=== PATIENT | female | born 1975 | race Caucasian/White ===

== ENCOUNTER 2017-03-17 09:34 | Emergency (ER) | payer MEDICAID ==
[2017-03-17] MEDS ORDERED: KETOROLAC 60 MG INJ IM (10:24)
[2017-03-17 11:05] LABS: ADD MAN DIFF? NO
[2017-03-17 11:25] LABS: BASOPHILS % 0.3 % (0.0-2.0); EOSINOPHILS # 0.2 10^3/ul (0.0-0.5); EOSINOPHILS % 1.7 % (0.0-7.0); HEMATOCRIT 32.7 % (37.0-47.0); LYMPHOCYTES # 1.4 10^3/ul (0.8-2.9); MEAN CORPUSCULAR HEMOGLOBIN 27.9 pg (29.0-33.0); MEAN CORPUSCULAR HGB CONC 33.6 g/dl (32.0-37.0); MEAN PLATELET VOLUME 10.7 fl (7.4-10.4); MONOCYTE # 0.7 10^3/ul (0.3-0.9); MONOCYTES % 6.4 % (0.0-11.0); NEUTROPHIL # 8.5 10^3/ul (1.6-7.5); NEUTROPHILS % 78.1 % (39.0-77.0); PLATELET COUNT 260 10^3/UL (140-415); RED BLOOD COUNT 3.94 10^6/ul (4.20-5.40); RED CELL DISTRIBUTION WIDTH 14.5 % (11.5-14.5)
[2017-03-17 11:25] LABS: WHITE BLOOD COUNT 10.9 10^3/ul (4.8-10.8)
[2017-03-17] MEDS: ONDANSETRON 4 MG INJ IV (11:27)
[2017-03-17] MEDS: morphine 4 MG/ML VIAL IV (11:27)
[2017-03-17 11:28] LABS: ANION GAP 14 (8-16); BLOOD UREA NITROGEN 15 mg/dl (7-20); CALCIUM 9.2 mg/dl (8.4-10.2); CARBON DIOXIDE 24 mmol/L (21-31); CHLORIDE 105 mmol/L (97-110); CREATININE 0.64 mg/dl (0.44-1.00); GLUCOSE 119 mg/dl (70-220); SODIUM 139 mmol/L (135-144)
== END 2017-03-17 13:41 | disposition home or self-care (01) ==
LOC: FTE 09:34
DX: R51 Headache (principal); R20.0 Anesthesia of skin; R20.2 Paresthesia of skin; R07.9 Chest pain, unspecified; M79.602 Pain in left arm
CPT/HCPCS: 36415; 70450; 71045; 80048; 85025; 93005; 96374; 96375; 99285-25